=== PATIENT | female | born 1975 | race Caucasian/White ===

== ENCOUNTER 2020-11-22 20:02 | Inpatient (IN) | payer OTHER ==
[~2020-11-22] VITALS: Ht 162.6 cm; Wt 57.0 kg
--- NOTE | 2020-11-22 20:10 | NUR ---
NOT IN LOBBY WHEN CALLED
--- NOTE | 2020-11-22 21:02 | NUR ---
Pt very jaundiced, has large rounded disdended abdomen. States has been drinking pt vodka a day, and doing meth. Hasn't seen dr in years. No BM in "months", here for n/v. IV started labs drawn and sent. Dr Vera at bedside for further orders. IVF infusing.
[2020-11-22] MEDS ORDERED: ONDANSETRON 2MG/ML, 2ML ONE (21:21)
[2020-11-22] MEDS ORDERED: MORPHINE SULFATE 4 MG/ML, 1ML ONE (21:22)
[2020-11-22] MEDS ORDERED: CEFEPIME 1 GM in DEXTROSE 5% 50 ML IV ONE (21:30)
[2020-11-22] MEDS ORDERED: ONDANSETRON 2MG/ML, 2ML IVPush ONE (21:30)
[2020-11-22] MEDS ORDERED: SODIUM CHLORIDE 0.9% 1,000ML IVBOLUS ONE (21:30)
[2020-11-22 21:31] LABS: ALANINE AMINOTRANSFERASE 19 U/L (12-78); CALCIUM 8.2 mg/dL (8.5-10.1); CHLORIDE 99 mmol/L (98-107); CREATININE 0.68 mg/dL (0.55-1.02)
--- NOTE | 2020-11-22 21:32 | NUR ---
IVF wide open, 2 sets BC drawn and sent. Requested abx from pharmacy as is not floor stock; will hang as soon as arrives. PCXR done. On cont pulse, cr monitor. Medicated per order, will continue to monitor.
[2020-11-22 21:35] LABS: ALKALINE PHOSPHATASE 273 U/L (45-117); BILIRUBIN,TOTAL 7.8 mg/dL (0.2-1.0)
[2020-11-22 21:40] LABS: ANION GAP 10 mmol/L (5-15)
--- NOTE | 2020-11-22 21:43 | NUR ---
Abx started, bc x2 have been drawn. cogeneration technician at bedside.
[2020-11-22] MEDS: MORPHINE SULFATE 4 MG/ML, 1ML IVPush PRN (21:44)
[2020-11-22] MEDS ORDERED: POTASSIUM CHLORIDE 40 MEQ in SODIUM CHLORIDE 0.9% 500 ML IV ONE (22:00)
[2020-11-22] MEDS ORDERED: POTASSIUM CHLORIDE 20 MEQ TAB.ER.PRT PO ONE (22:00)
[2020-11-22] MEDS ORDERED: NS + 40MEQ KCL 1,000 ML IV ONE (22:09)
[2020-11-22] MEDS ORDERED: POTASSIUM CHLORIDE 20 MEQ TAB.ER.PRT ONE (22:09)
[2020-11-22 22:25] LABS: INTERNATIONAL NORMALIZED RATIO 1.44 (0.93-1.1); PROTHROMBIN TIME 15.1 Seconds (9.6-11.5)
--- NOTE | 2020-11-22 22:50 | NUR ---
Report to GINNY Cerrato
--- NOTE | 2020-11-22 22:58 | NUR ---
REPORT FROM JOHNY GROSS
--- NOTE | 2020-11-22 23:16 | NUR ---
pt up to restroom. steady independt gait.
[2020-11-22 23:39] LABS: MICROSCOPIC INDICATED
[2020-11-23] VITALS (7 sets, daily range): BP systolic 98–116; BP diastolic 59–75
[2020-11-23] LABS: MEAN CORPUSCULAR HEMOGLOBIN 22.7 pg (27.0-34.8); MEAN PLATELET VOLUME 8.6 fL (7.4-10.4); PLATELET COUNT 400 x10^3/uL (130-400); RED BLOOD COUNT 2.89 x10^6/uL (3.82-5.3); RED CELL DISTRIBUTION WIDTH 25.8 % (9.6-15.2)
[2020-11-23 00:05] LABS: MEAN CORPUSCULAR HGB CONC 28.6 g/dL (32.4-35.8)
[2020-11-23] MEDS ORDERED: SODIUM CHLORIDE 0.9% 1,000ML IVBOLUS ONE (00:30)
[2020-11-23] MEDS ORDERED: ONDANSETRON 2MG/ML, 2ML ONE (00:37)
[2020-11-23] MEDS ORDERED: MORPHINE SULFATE 4 MG/ML, 1ML ONE (00:37)
[2020-11-23] MEDS: MORPHINE SULFATE 4 MG/ML, 1ML IVPush PRN (00:42)
[2020-11-23 00:56] LABS: ANISOCYTOSIS 2+; BAND#(MANUAL) 1.48 x10^3/uL; BANDS%(MANUAL) 8 % (0-7); BASOS#(MANUAL) 0.37 x10^3/uL (0-0.1); BASOS% (MANUAL) 2 % (0-1); HYPOCHROMIA 2+; LYMPH#(MANUAL) 0.56 x10^3/uL (1-3.4); LYMPHS% (MANUAL) 3 % (22-44); MICROCYTOSIS 1+; MONOS#(MANUAL) 0.56 x10^3/uL (0.3-2.7); MONOS% (MANUAL) 3 % (2-9); SEG#(MANUAL) 15.54 x10^3/uL (1.8-6.8); SEGS% (MANUAL) 84 % (42-75); TARGET CELLS 1+
[2020-11-23 00:57] LABS: OVALOCYTES 1+; STOMATOCYTES 1+
[2020-11-23 00:58] LABS: <PLATELET ESTIMATE> ADEQUATE; <PLT MORPHOLOGY> NORMAL PLT MORPH; PMNS WITH VACUOLES 1+; POLYCHROMASIA 1+
[2020-11-23] MEDS ORDERED: LABETALOL 5MG/ML, 20ML IVPush PRN (01:00)
[2020-11-23] MEDS ORDERED: GABAPENTIN 300 MG CAPSULE PO PRN (01:00)
[2020-11-23] MEDS ORDERED: THIAMINE 200 MG in SODIUM CHLORIDE 0.9% 50 ML IV ONE (01:00)
[2020-11-23] MEDS ORDERED: BISACODYL 10 MG SUPP PR PRN (01:00)
[2020-11-23] MEDS ORDERED: ONDANSETRON 2MG/ML, 2ML IVPush PRN (01:00)
[2020-11-23] MEDS ORDERED: ONDANSETRON 2MG/ML, 2ML IVPush ONE (01:00)
--- NOTE | 2020-11-23 01:10 | NUR ---
report given to viky walsh
--- NOTE | 2020-11-23 01:14 | NUR ---
recieving rn aware of blood transfusion and k-rider infusion.
[2020-11-23 09:17] LABS: ALANINE AMINOTRANSFERASE 11 U/L (12-78); ALBUMIN 1.7 g/dL (3.4-5.0); ANION GAP 6 mmol/L (5-15); CALCIUM 7.4 mg/dL (8.5-10.1); CHLORIDE 105 mmol/L (98-107); CREATININE 0.57 mg/dL (0.55-1.02); MEAN PLATELET VOLUME 8.3 fL (7.4-10.4); PLATELET COUNT 410 x10^3/uL (130-400); RED BLOOD COUNT 3.39 x10^6/uL (3.82-5.3); RED CELL DISTRIBUTION WIDTH 24.1 % (9.6-15.2)
[2020-11-23 09:20] LABS: ALKALINE PHOSPHATASE 223 U/L (45-117); BILIRUBIN,TOTAL 10.4 mg/dL (0.2-1.0); TOTAL PROTEIN 5.7 g/dL (6.4-8.2)
[2020-11-23 09:45] LABS: MEAN CORPUSCULAR HGB CONC 29.7 g/dL (32.4-35.8)
[2020-11-23 09:56] LABS: <PLATELET ESTIMATE> INCREASED; <PLT MORPHOLOGY> NORMAL PLT MORPH; ANISOCYTOSIS 2+; BASOS#(MANUAL) 0.22 x10^3/uL (0-0.1); BASOS% (MANUAL) 1 % (0-1); EOS#(MANUAL) 0.67 x10^3/uL (0.0-0.4); EOS% (MANUAL) 3 % (1-7); HYPOCHROMIA 2+; LYMPH#(MANUAL) 1.78 x10^3/uL (1-3.4); LYMPHS% (MANUAL) 8 % (22-44); MICROCYTOSIS 1+; MONOS#(MANUAL) 0.89 x10^3/uL (0.3-2.7); MONOS% (MANUAL) 4 % (2-9); OVALOCYTES 1+; POLYCHROMASIA 1+; SEG#(MANUAL) 18.65 x10^3/uL (1.8-6.8); SEGS% (MANUAL) 84 % (42-75); TARGET CELLS 1+
[2020-11-23] MEDS: CEFEPIME 1 GM in DEXTROSE 5% 50 ML IV SCH ×2 (10:43→22:47)
[2020-11-23] MEDS: THIAMINE 100MG TABLET PO/NG SCH (10:43)
[2020-11-23] MEDS: SENNA/DOCUSATE TABLET PO SCH (10:44)
[2020-11-23 12:51] LABS: OCCULT BLOOD NEGATIVE (NEGATIVE)
[2020-11-23] MEDS ORDERED: SIMETHICONE 80 MG CHEW TAB PO PRN (15:30)
[2020-11-23] MEDS: GABAPENTIN 300 MG CAPSULE PO PRN ×2 (15:55→22:51)
[2020-11-24 00:12] VITALS: BP 131/77
[2020-11-24 06:05] LABS: MEAN CORPUSCULAR HEMOGLOBIN 24.4 pg (27.0-34.8); MEAN PLATELET VOLUME 8.6 fL (7.4-10.4); PLATELET COUNT 418 x10^3/uL (130-400); RED BLOOD COUNT 3.34 x10^6/uL (3.82-5.3); RED CELL DISTRIBUTION WIDTH 24.4 % (9.6-15.2)
[2020-11-24 06:11] LABS: CHLORIDE 101 mmol/L (98-107)
[2020-11-24 06:17] LABS: ALANINE AMINOTRANSFERASE 13 U/L (12-78); ALBUMIN 1.6 g/dL (3.4-5.0); ALKALINE PHOSPHATASE 218 U/L (45-117); ANION GAP 6 mmol/L (5-15); BILIRUBIN,TOTAL 13.3 mg/dL (0.2-1.0); CALCIUM 7.7 mg/dL (8.5-10.1); CREATININE 0.57 mg/dL (0.55-1.02); TOTAL PROTEIN 5.8 g/dL (6.4-8.2)
[2020-11-24 06:44] LABS: MEAN CORPUSCULAR HGB CONC 29.7 g/dL (32.4-35.8)
[2020-11-24 06:46] LABS: ANISOCYTOSIS 2+; EOS#(MANUAL) 0.22 x10^3/uL (0.0-0.4); EOS% (MANUAL) 1 % (1-7); HYPOCHROMIA 2+; LYMPH#(MANUAL) 2.22 x10^3/uL (1-3.4); LYMPHS% (MANUAL) 10 % (22-44); MICROCYTOSIS 1+; MONOS#(MANUAL) 0.67 x10^3/uL (0.3-2.7); MONOS% (MANUAL) 3 % (2-9); POLYCHROMASIA 1+; SEG#(MANUAL) 19.09 x10^3/uL (1.8-6.8); SEGS% (MANUAL) 86 % (42-75); TARGET CELLS 1+
[2020-11-24 06:48] LABS: <PLATELET ESTIMATE> INCREASED; <PLT MORPHOLOGY> NORMAL PLT MORPH; OVALOCYTES 1+
[2020-11-24 07:03] VITALS: BP 133/77
[2020-11-24] MEDS: GABAPENTIN 300 MG CAPSULE PO PRN ×2 (07:43→16:38)
[2020-11-24] MEDS: SENNA/DOCUSATE TABLET PO SCH (07:43)
[2020-11-24] MEDS: THIAMINE 100MG TABLET PO/NG SCH (07:43)
[2020-11-24] MEDS ORDERED: MAGNESIUM SULFATE PMX 2GM/50ML 50 ML IV ONE (08:00)
[2020-11-24] MEDS: POTASSIUM CHLORIDE 20 MEQ TAB.ER.PRT PO SCH ×2 (08:16→16:38)
[2020-11-24] MEDS: CEFEPIME 1 GM in DEXTROSE 5% 50 ML IV SCH (10:25)
[2020-11-24] MEDS ORDERED: LIDOCAINE-MPF 1%, 5ML ONE (12:55)
[2020-11-24 13:03] VITALS: BP 95/63
[2020-11-24] MEDS ORDERED: OXYcodone IR 5MG TABLET PO PRN (17:00)
[2020-11-24] MEDS ORDERED: CEFEPIME 2 GM in DEXTROSE 5% 100 ML IV SCH (18:00)
[2020-11-24 18:53] VITALS: BP 103/63
== END 2020-11-25 00:19 | disposition left against medical advice (07) | DRG 871 ==
LOC: ED 22:04 → EDIP 11-23 00:28 → 4EST 11-23 01:50
PROVIDERS: ADMIT Family Medicine; ATTEND Hospitalist
PROC: 30233N1 Transfusion of Nonautologous Red Blood Cells into Peripheral Vein, Percutaneous Approach (ICD-10-PCS; 2020-11-23)
PROC: 0WJG3ZZ Inspection of Peritoneal Cavity, Percutaneous Approach (ICD-10-PCS; principal; 2020-11-24)
DX: A41.9 Sepsis, unspecified organism (principal); K65.9 Peritonitis, unspecified; N39.0 Urinary tract infection, site not specified; D50.9 Iron deficiency anemia, unspecified; D53.9 Nutritional anemia, unspecified; E87.6 Hypokalemia; F10.20 Alcohol dependence, uncomplicated; F17.210 Nicotine dependence, cigarettes, uncomplicated; K59.00 Constipation, unspecified; K70.11 Alcoholic hepatitis with ascites; K70.31 Alcoholic cirrhosis of liver with ascites; K70.40 Alcoholic hepatic failure without coma; K76.0 Fatty (change of) liver, not elsewhere classified; Z53.29 Procedure and treatment not carried out because of patient's decision for other reasons; R65.20 Severe sepsis without septic shock; Z88.5 Allergy status to narcotic agent
CPT/HCPCS: 36415; 36430; 49083; 71045; 76700; 80053; 80074; 81001; 82272; 82728; 83540; 83550; 83605; 83690; 83735; 84100; 84466; 84703; 85025; 85610; 86850; 86900; 86923; 87040; 87086; 93005; 96374; 96375; G0378; J0692; J2405; J3411; J3480; J2270; J3475; J7030; J7040; P9016